=== PATIENT | male | born 1970 | race Caucasian/White ===

== ENCOUNTER 2022-08-26 11:23 | Inpatient (IN) | payer BC ==
[2022-08-26 12:00] VITALS: BMI 21.2
[2022-08-26] MEDS ORDERED: MAGNESIUM HYDROX 2400MG/30ML ORAL SUSPENSION 30 ML CUP PO PRN (14:58)
[2022-08-26] MEDS ORDERED: IBUPROFEN 600 MG TABLET (FP) PO PRN (14:58)
[2022-08-26] MEDS ORDERED: BENZOCAINE/MENTHOL (CHLORASEPTIC ) LOZENGE MM PRN (14:58)
[2022-08-26] MEDS ORDERED: guaiFENesin 600 MG TABLET.ER (FP) PO PRN (14:58)
[2022-08-26] MEDS ORDERED: LOPERAMIDE HCL 2 MG CAPSULE PO PRN (14:58)
[2022-08-26] MEDS ORDERED: NICOTINE 10 MG CARTRIDGE (INHALER) IH PRN (14:58)
[2022-08-26] MEDS ORDERED: COLLOIDAL OATMEAL 1 BAR EACH TP PRN (14:58)
[2022-08-26] MEDS ORDERED: MAG HYDROX/AL HYDROX/SIMETH 30 ML UNIT-DOSE CUP PO PRN (14:58)
[2022-08-26] MEDS ORDERED: ACETAMINOPHEN 325 MG TABLET (FP) PO PRN (14:58)
[2022-08-26] MEDS ORDERED: IBUPROFEN 400 MG TABLET (FP) PO PRN (14:58)
[2022-08-26] MEDS ORDERED: BENZONATATE 200 MG CAPSULE PO PRN (14:58)
[2022-08-26] MEDS ORDERED: NALOXONE HCL (KLOXXADO) 8 MG SPRAY NS PRN (14:58)
[2022-08-26] MEDS ORDERED: AMMONIUM LACTATE 12% LOTION 225 GM BOTTLE TP PRN (14:58)
[2022-08-26] MEDS ORDERED: POLYETHYLENE GLYCOL (HEALTHYLAX) 3350 17 GM PACKET PO PRN (14:58)
[2022-08-26] MEDS ORDERED: NALOXONE HCL 0.4 MG/ML VIAL IM PRN (14:58)
[2022-08-26] MEDS: NICOTINE 14 MG/24 HOURS TOPICAL PATCH TD SCH (15:54)
[2022-08-26] MEDS ORDERED: TUBERCULIN PPD 5 TU/0.1ML VIAL ID ONE ×2 (20:47→22:17)
[2022-08-26] MEDS: BENZTROPINE MESYLATE 1 MG TABLET PO SCH (21:12)
[2022-08-26] MEDS: THIAMINE HCL 100 MG TABLET (FP) PO SCH (21:13)
[2022-08-26] MEDS ORDERED: MELATONIN 5 MG TABLETS PO SCH (22:00)
[2022-08-26] MEDS: SUVOREXANT 10 MG TABLET PO PRN (22:24)
[2022-08-27] MEDS: BENZTROPINE MESYLATE 1 MG TABLET PO SCH ×2 (09:13→21:12)
[2022-08-27] MEDS: hydrOXYzine PAMOATE 25 MG CAPSULE (FP) PO PRN (09:13)
[2022-08-27] MEDS: NICOTINE 14 MG/24 HOURS TOPICAL PATCH TD SCH (09:14)
[2022-08-27] MEDS: PRENATAL VITAMINS W/ FOLIC ACID TABLET (FP) PO SCH (09:14)
[2022-08-27 09:39] LABS: CALCIUM 8.6 mg/dL (8.5-10.1); HEMATOCRIT 41.4 % (35.4-49); MCH 29.9 pg (25.7-33.7); MCHC 33.9 g/dl (32.0-35.9); MEAN CELL VOLUME 88.3 fl (80-96); MEAN PLT VOLUME 7.7 fl (7.5-11.1); PLATELET COUNT 251 10^3/uL (134-434); RBC 4.69 M/mm3 (4.00-5.60); RDW 15.2 % (11.9-15.9); WHITE BLOOD COUNT 5.4 K/mm3 (4.0-10.0)
[2022-08-27 09:40] LABS: ALBUMIN 3.2 g/dl (3.4-5.0); BLOOD UREA NITROGEN 15.3 mg/dL (7-18)
[2022-08-27 09:45] LABS: TOT PROT 6.5 g/dl (6.4-8.2)
[2022-08-27 19:35] LABS: URINE APPEARANCE CLEAR; URINE BILIRUBIN NEGATIVE (NEGATIVE); URINE COLOR YELLOW; URINE GLUCOSE (UA) NEGATIVE (NEGATIVE); URINE KETONE NEGATIVE (NEGATIVE); URINE LEUK ESTERASE NEGATIVE (NEGATIVE); URINE NITRITE NEGATIVE (NEGATIVE); URINE PROTEIN NEGATIVE (NEGATIVE); URINE UROBILINOGEN 0.2 mg/dL (0.2-1.0)
[2022-08-27] MEDS: THIAMINE HCL 100 MG TABLET (FP) PO SCH (21:11)
[2022-08-27] MEDS: SUVOREXANT 10 MG TABLET PO PRN (21:12)
[2022-08-28] MEDS: NICOTINE 14 MG/24 HOURS TOPICAL PATCH TD SCH (09:56)
[2022-08-28] MEDS: PRENATAL VITAMINS W/ FOLIC ACID TABLET (FP) PO SCH (09:56)
[2022-08-28] MEDS: BENZTROPINE MESYLATE 1 MG TABLET PO SCH ×2 (09:56→21:11)
[2022-08-28] MEDS: THIAMINE HCL 100 MG TABLET (FP) PO SCH (21:09)
[2022-08-29] MEDS ORDERED: NICOTINE 14 MG/24 HOURS TOPICAL PATCH TD PRN (08:40)
[2022-08-29] MEDS: PRENATAL VITAMINS W/ FOLIC ACID TABLET (FP) PO SCH (10:07)
[2022-08-29] MEDS: BENZTROPINE MESYLATE 1 MG TABLET PO SCH ×2 (10:07→21:17)
[2022-08-29] MEDS: THIAMINE HCL 100 MG TABLET (FP) PO SCH (21:17)
[2022-08-30] MEDS: BENZTROPINE MESYLATE 1 MG TABLET PO SCH ×2 (09:33→21:20)
[2022-08-30] MEDS: hydrOXYzine PAMOATE 25 MG CAPSULE (FP) PO PRN (09:34)
[2022-08-30] MEDS: PRENATAL VITAMINS W/ FOLIC ACID TABLET (FP) PO SCH (09:34)
[2022-08-30] MEDS: THIAMINE HCL 100 MG TABLET (FP) PO SCH (21:20)
[2022-08-31] MEDS: PRENATAL VITAMINS W/ FOLIC ACID TABLET (FP) PO SCH (09:43)
[2022-08-31] MEDS: BENZTROPINE MESYLATE 1 MG TABLET PO SCH ×2 (09:43→21:05)
[2022-08-31] MEDS: THIAMINE HCL 100 MG TABLET (FP) PO SCH (21:05)
[2022-09-01] MEDS: BENZTROPINE MESYLATE 1 MG TABLET PO SCH ×2 (09:51→21:27)
[2022-09-01] MEDS: PRENATAL VITAMINS W/ FOLIC ACID TABLET (FP) PO SCH (09:53)
[2022-09-01] MEDS: SUVOREXANT 10 MG TABLET PO PRN (21:27)
[2022-09-01] MEDS: THIAMINE HCL 100 MG TABLET (FP) PO SCH (21:27)
[2022-09-02] MEDS: PRENATAL VITAMINS W/ FOLIC ACID TABLET (FP) PO SCH (10:24)
[2022-09-02] MEDS: BENZTROPINE MESYLATE 1 MG TABLET PO SCH ×2 (10:24→21:08)
[2022-09-02] MEDS: SUVOREXANT 10 MG TABLET PO PRN (21:08)
[2022-09-02] MEDS: THIAMINE HCL 100 MG TABLET (FP) PO SCH (21:08)
[2022-09-03] MEDS: PRENATAL VITAMINS W/ FOLIC ACID TABLET (FP) PO SCH (09:46)
[2022-09-03] MEDS: BENZTROPINE MESYLATE 1 MG TABLET PO SCH ×2 (09:46→21:27)
[2022-09-03] MEDS: THIAMINE HCL 100 MG TABLET (FP) PO SCH (21:27)
[2022-09-03] MEDS: SUVOREXANT 10 MG TABLET PO PRN (23:44)
[2022-09-03] MEDS: hydrOXYzine PAMOATE 25 MG CAPSULE (FP) PO PRN (23:44)
[2022-09-04] MEDS: BENZTROPINE MESYLATE 1 MG TABLET PO SCH ×2 (10:00→21:19)
[2022-09-04] MEDS: PRENATAL VITAMINS W/ FOLIC ACID TABLET (FP) PO SCH (10:01)
[2022-09-04] MEDS: THIAMINE HCL 100 MG TABLET (FP) PO SCH (21:19)
[2022-09-04] MEDS: SUVOREXANT 10 MG TABLET PO PRN (21:20)
[2022-09-05] MEDS: BENZTROPINE MESYLATE 1 MG TABLET PO SCH ×2 (09:52→21:20)
[2022-09-05] MEDS: PRENATAL VITAMINS W/ FOLIC ACID TABLET (FP) PO SCH (09:53)
[2022-09-05] MEDS: SUVOREXANT 10 MG TABLET PO PRN (21:20)
[2022-09-05] MEDS: THIAMINE HCL 100 MG TABLET (FP) PO SCH (21:20)
[2022-09-06] MEDS: PRENATAL VITAMINS W/ FOLIC ACID TABLET (FP) PO SCH (10:12)
[2022-09-06] MEDS: BENZTROPINE MESYLATE 1 MG TABLET PO SCH ×2 (10:12→21:03)
[2022-09-06] MEDS: SUVOREXANT 10 MG TABLET PO PRN (21:03)
[2022-09-06] MEDS: THIAMINE HCL 100 MG TABLET (FP) PO SCH (21:03)
[2022-09-07] MEDS: hydrOXYzine PAMOATE 25 MG CAPSULE (FP) PO PRN (02:08)
[2022-09-07] MEDS: PRENATAL VITAMINS W/ FOLIC ACID TABLET (FP) PO SCH (09:51)
[2022-09-07] MEDS: BENZTROPINE MESYLATE 1 MG TABLET PO SCH ×2 (09:51→21:12)
[2022-09-07] MEDS ORDERED: HALOPERIDOL DECANOATE 100 MG/ML IM ONE (12:00)
[2022-09-07] MEDS: SUVOREXANT 10 MG TABLET PO PRN (21:12)
[2022-09-07] MEDS: THIAMINE HCL 100 MG TABLET (FP) PO SCH (21:12)
[2022-09-08] MEDS: BENZTROPINE MESYLATE 1 MG TABLET PO SCH ×2 (10:07→21:10)
[2022-09-08] MEDS: PRENATAL VITAMINS W/ FOLIC ACID TABLET (FP) PO SCH (10:07)
[2022-09-08] MEDS: THIAMINE HCL 100 MG TABLET (FP) PO SCH (21:09)
[2022-09-08] MEDS: SUVOREXANT 10 MG TABLET PO PRN (21:10)
[2022-09-09] MEDS: PRENATAL VITAMINS W/ FOLIC ACID TABLET (FP) PO SCH (09:43)
[2022-09-09] MEDS: BENZTROPINE MESYLATE 1 MG TABLET PO SCH ×2 (09:44→21:13)
[2022-09-09] MEDS: SUVOREXANT 10 MG TABLET PO PRN (21:13)
[2022-09-09] MEDS: THIAMINE HCL 100 MG TABLET (FP) PO SCH (21:13)
[2022-09-10] MEDS: BENZTROPINE MESYLATE 1 MG TABLET PO SCH ×2 (09:35→21:05)
[2022-09-10] MEDS: PRENATAL VITAMINS W/ FOLIC ACID TABLET (FP) PO SCH (09:35)
[2022-09-10] MEDS: SUVOREXANT 10 MG TABLET PO PRN (21:05)
[2022-09-10] MEDS: THIAMINE HCL 100 MG TABLET (FP) PO SCH (21:05)
[2022-09-11] MEDS: PRENATAL VITAMINS W/ FOLIC ACID TABLET (FP) PO SCH (09:28)
[2022-09-11] MEDS: BENZTROPINE MESYLATE 1 MG TABLET PO SCH ×2 (09:28→21:27)
[2022-09-11] MEDS: THIAMINE HCL 100 MG TABLET (FP) PO SCH (21:27)
[2022-09-11] MEDS: SUVOREXANT 10 MG TABLET PO PRN (21:28)
[2022-09-12] MEDS: PRENATAL VITAMINS W/ FOLIC ACID TABLET (FP) PO SCH (10:08)
[2022-09-12] MEDS: BENZTROPINE MESYLATE 1 MG TABLET PO SCH ×2 (10:08→21:19)
[2022-09-12] MEDS: THIAMINE HCL 100 MG TABLET (FP) PO SCH (21:18)
[2022-09-12] MEDS: SUVOREXANT 10 MG TABLET PO PRN (21:19)
[2022-09-13] MEDS: BENZTROPINE MESYLATE 1 MG TABLET PO SCH ×2 (09:31→21:06)
[2022-09-13] MEDS: PRENATAL VITAMINS W/ FOLIC ACID TABLET (FP) PO SCH (09:31)
[2022-09-13] MEDS: THIAMINE HCL 100 MG TABLET (FP) PO SCH (21:06)
[2022-09-13] MEDS: SUVOREXANT 10 MG TABLET PO PRN (21:06)
[2022-09-14] MEDS: PRENATAL VITAMINS W/ FOLIC ACID TABLET (FP) PO SCH (09:47)
[2022-09-14] MEDS: hydrOXYzine PAMOATE 25 MG CAPSULE (FP) PO PRN (09:47)
[2022-09-14] MEDS: BENZTROPINE MESYLATE 1 MG TABLET PO SCH ×2 (09:47→21:11)
[2022-09-14] MEDS: SUVOREXANT 10 MG TABLET PO PRN (21:11)
[2022-09-14] MEDS: THIAMINE HCL 100 MG TABLET (FP) PO SCH (21:11)
[2022-09-15] MEDS: PRENATAL VITAMINS W/ FOLIC ACID TABLET (FP) PO SCH (10:18)
[2022-09-15] MEDS: BENZTROPINE MESYLATE 1 MG TABLET PO SCH ×2 (10:18→21:09)
[2022-09-15] MEDS: THIAMINE HCL 100 MG TABLET (FP) PO SCH (21:08)
[2022-09-15] MEDS: SUVOREXANT 10 MG TABLET PO PRN (21:09)
[2022-09-16] MEDS: BENZTROPINE MESYLATE 1 MG TABLET PO SCH ×2 (09:43→21:05)
[2022-09-16] MEDS: PRENATAL VITAMINS W/ FOLIC ACID TABLET (FP) PO SCH (09:43)
[2022-09-16] MEDS: THIAMINE HCL 100 MG TABLET (FP) PO SCH (21:04)
[2022-09-16] MEDS: SUVOREXANT 10 MG TABLET PO PRN (21:05)
[2022-09-17] MEDS: PRENATAL VITAMINS W/ FOLIC ACID TABLET (FP) PO SCH (09:15)
[2022-09-17] MEDS: BENZTROPINE MESYLATE 1 MG TABLET PO SCH ×2 (09:15→21:10)
[2022-09-17] MEDS: THIAMINE HCL 100 MG TABLET (FP) PO SCH (21:10)
[2022-09-17] MEDS: SUVOREXANT 10 MG TABLET PO PRN (21:11)
[2022-09-18] MEDS: PRENATAL VITAMINS W/ FOLIC ACID TABLET (FP) PO SCH (09:32)
[2022-09-18] MEDS: BENZTROPINE MESYLATE 1 MG TABLET PO SCH ×2 (09:32→21:22)
[2022-09-18] MEDS: THIAMINE HCL 100 MG TABLET (FP) PO SCH (21:22)
[2022-09-18] MEDS: SUVOREXANT 10 MG TABLET PO PRN (21:41)
[2022-09-19] MEDS: PRENATAL VITAMINS W/ FOLIC ACID TABLET (FP) PO SCH (09:47)
[2022-09-19] MEDS: BENZTROPINE MESYLATE 1 MG TABLET PO SCH ×2 (09:47→21:08)
[2022-09-19] MEDS: THIAMINE HCL 100 MG TABLET (FP) PO SCH (21:08)
[2022-09-19] MEDS: SUVOREXANT 10 MG TABLET PO PRN (21:08)
[2022-09-20] MEDS: PRENATAL VITAMINS W/ FOLIC ACID TABLET (FP) PO SCH (09:29)
[2022-09-20] MEDS: BENZTROPINE MESYLATE 1 MG TABLET PO SCH ×2 (09:30→23:01)
[2022-09-20] MEDS: THIAMINE HCL 100 MG TABLET (FP) PO SCH (23:01)
[2022-09-20] MEDS: SUVOREXANT 10 MG TABLET PO PRN (23:10)
[2022-09-21] MEDS: BENZTROPINE MESYLATE 1 MG TABLET PO SCH ×2 (09:46→21:17)
[2022-09-21] MEDS: PRENATAL VITAMINS W/ FOLIC ACID TABLET (FP) PO SCH (09:46)
[2022-09-21] MEDS: THIAMINE HCL 100 MG TABLET (FP) PO SCH (21:17)
[2022-09-21] MEDS: SUVOREXANT 10 MG TABLET PO PRN (21:18)
[2022-09-22 06:51] VITALS: BP 116/78; PULSE 90; RESP 18; TEMP 98.4
[2022-09-22] MEDS: BENZTROPINE MESYLATE 1 MG TABLET PO SCH (09:00)
[2022-09-22] MEDS: PRENATAL VITAMINS W/ FOLIC ACID TABLET (FP) PO SCH (09:00)
== END 2022-09-22 09:25 | disposition home or self-care (01) | DRG 772 ==
LOC: YASAS 11:23 → Y3E 15:41
PROVIDERS: ADMIT Allergy & Immunology; ATTEND Surgery
PROC: HZ42ZZZ Group Counseling for Substance Abuse Treatment, Cognitive-Behavioral (ICD-10-PCS; principal; 2022-08-26)
DX: F14.20 Cocaine dependence, uncomplicated (principal); F12.20 Cannabis dependence, uncomplicated; F17.210 Nicotine dependence, cigarettes, uncomplicated; F19.282 Other psychoactive substance dependence with psychoactive substance-induced sleep disorder; F20.9 Schizophrenia, unspecified; F43.10 Post-traumatic stress disorder, unspecified; E78.5 Hyperlipidemia, unspecified; Z86.19 Personal history of other infectious and parasitic diseases
CPT/HCPCS: 36415; 80053; 81003; 85027; 86593; 86780; 86803; 87811; C9803-CS; U0003; U0005